=== PATIENT | male | born 1990 | race African-American/Black ===

== ENCOUNTER 2024-01-02 00:25 | Emergency (ER) | payer OTHER, SELFPAY ==
[2024-01-02 01:27] VITALS: BP 136/91; PULSE 88; RESP 18; TEMP 36.7; O2SAT 99; BMI 31.8
[2024-01-02 06:01] VITALS: BP 141/91; PULSE 68; RESP 18; TEMP 36.7; O2SAT 96
[2024-01-02 06:37] VITALS: BP 137/99; PULSE 83; RESP 17; TEMP 37.1; O2SAT 99
--- NOTE | 2024-01-02 07:29 | ED.GENADULT ---
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 He states that he developed his symptoms around 6 months ago after being in [place]. He was treated with a course of ampicillin was states symptoms did not improve with this. He reports the areas are at times painful and sometimes bleed. He denies fever/chills/body aches. MD complaint: Rash Onset (ago): month(s) Location: face and neck Severity: moderate Quality: aching Associated symptoms: denies other symptoms Treatments prior to arrival: other Related Data Previous Rx's ?Medication ?Instructions ?Recorded betamethasone dipropionate 0.05 % 1 appl topical BID PRN skin 01/02/24 topical cream irritation #15 grams doxycycline hyclate 100 mg capsule 100 mg PO BID #14 caps 01/02/24 Allergies Allergy/AdvReac Type Severity Reaction Status Date / Time No Known Allergies Allergy Verified 01/02/24 01:27 Review of Systems Review of Systems: As per HPI Yes all other systems are reviewed and are negative Constitutional: Constitutional: Reports as per HPI [facility] Social History Social History Advance Directives: No Advance Directives Information Provided: Yes Physical Exam ED Vital Signs: Vital Signs - 24 hr 01/02/24 01:27 01/02/24 06:01 01/02/24 06:37 Temperature 98.1 F 98.1 F 98.8 F Pulse Rate 88 68 83 Respiratory Rate 18 18 17 Blood Pressure 136/91 H 141/91 H 137/99 H Pulse Oximetry 99 96 99 Oxygen Delivery Method Room Air Room Air Room Air BMI result Body Mass Index 31.8 Vital signs have been reviewed and appear to be correct. Blood pressure slightly elevated. Heart rate normal. Respiratory rate normal. Temperature normal. Oxygen saturation normal. Const General: cooperative, healthy appearing and no acute distress Orientation/consciousness: oriented to person, oriented to place, oriented to time and patient oriented x3 Limitations: no limitations HENMT Head: Yes normocephalic and Yes atraumatic Head images: 1. 1-2mm papule Ears: external ears normal General nose exam: Normal external nose present Face and sinus: Yes face symmetric Mouth: oropharynx normal and moist mucous membranes Throat: Yes uvula midline Eyes Pupils: Equal, round and reactive pupils present Neck Neck: Yes normal visual inspection, Yes full ROM, Yes no lymphadenopathy, Yes no meningeal signs and Yes supple Neck images: 1. 2-3mm papules and pustules with scarring along hairline Resp Effort & Inspection: normal respiratory effort and able to speak in complete sentences Auscultation: clear to auscultation bilaterally Cardio Rate: regular rate Rhythm: regular rhythm Heart sounds: S1 normal heart sound present and S2 normal heart sound present GI Palpation (GI): Soft to palpation and nontender Auscultation: normoactive bowel sounds General: Yes no CVA tenderness Back/Spine/Pelvis Back: no CVA tenderness Skin General skin exam: elasticity normal and turgor normal Neuro General: oriented to person, oriented to place, oriented to time, patient oriented x3, moves all extremities, no meningeal signs, no focal motor deficits and CN's II-XI intact bilaterally Cranial nerves: Yes Equal, round and reactive pupils present Cognition (Neuro): normal cognition Extrem General: Yes full ROM, Yes no pedal edema and Yes no calf tenderness Psych Mental Status: mental status grossly normal Affect: normal affect Thought process: Normal thought process present Medical Decision Making Medical Decision Making MDM Narrative: Patient is a 33-year-old Iranian Creole speaking male presenting to the emergency department with complaint of rash to back of neck, and several spots on face. On exam patient is awake, A+Ox3, VS WNL, afebrile, normal neurological exam without focal deficits, physical exam findings as above. Given reported symptoms and physical exam findings, initial differential includes folliculitis, abscess, acne keloidalis nuchae. Physical exam findings most consistent with acne keloidalis nuchae. Patient is afebrile, stable for discharge. Will treat with course of doxycycline and betamethasone cream. Will refer to General surgery for ongoing symptoms. Discussed with patient the importance of establishing care with a primary care provider for ongoing treatment and management of his symptoms. Return precautions discussed at bedside. Patient verbalized understanding of and agreement with plan. Assessment, diagnosis, return precautions, and plan discussed with patient via Iranian Creole photographic equipment mechanic. Differential Diagnosis Differential Diagnoses: The differential diagnosis associated with the presentation includes As per MDM. External Record Review External record reviewed: Inpatient record, Office record and Outpatient record Prescription Management I considered prescription management with: Antibiotic and Other Social Determinants Patient?s care significantly limited by Social Determinants of Health including: Other Social Determinant of Health Discharge Plan Discharge Clinical Impression: Acne keloidalis nuchae Patient Disposition: Home, Self-Care Instructions: Folliculitis (ED) Additional Instructions: You were evaluated in the emergency department today for an inflammation of your skin which is likely due to acne keloidalis nuchae. You are being treated with an oral antibiotic and a topical steroid cream. Please use these as prescribed. You will need to follow up with a primary care provider if this requires additional treatment to resolve. If your symptoms worsen, you may need to see a general surgeon. Return to the emergency department if you develop fever, chills, body aches or other concerning symptoms. Prescriptions: New doxycycline hyclate 100 mg capsule 100 mg PO BID Qty: 14 0RF betamethasone dipropionate 0.05 % cream 1 appl topical BID PRN (Reason: skin irritation) Qty: 15 0RF Referrals: [facility] [Provider Group] Print Language: Tonya Doll
[2024-01-02 07:57] VITALS: BP 137/99; PULSE 83; RESP 17; TEMP 37.1; O2SAT 99
== END 2024-01-02 07:58 | disposition home or self-care (01) ==
PROVIDERS: Emergency Provider Emergency Medicine
DX: L91.0 Hypertrophic scar (principal); R21 Rash and other nonspecific skin eruption
CPT/HCPCS: 99283